=== PATIENT | male | born 1960 | race American Indian/Alaskan Native ===

== ENCOUNTER 2020-10-23 11:38 | Emergency (ER) | payer SELFPAY ==
[2020-10-23 12:46] VITALS: BP 148/76
--- NOTE | 2020-10-23 13:06 | Event Note ---
ED Screening Note Date of service: 10/23/20 Time: 13:05 ED Screening Note: Patient presents to the ER today with complaints of epigastric pain. Onset this morning. Describes it as a cramping pain with associated headache, nausea, vomiting and loose stools. Any associated chest pain, shortness of breath, fever or chills. He denies any hematemesis, hematochezia or melena. He denies any history of abdominal surgeries. He states that he does smoke cigarettes. He denies any significant past medical history. He denies alcohol abuse. This initial assessment/diagnostic orders/clinical plan/treatment(s) is/are subject to change based on patients health status, clinical progression and re-assessment by fellow clinical providers in the ED. Further treatment and workup at subsequent clinical providers discretion. Patient/guardian urged not to elope from the ED as their condition may be serious if not clinically assessed and managed. Initial orders include: Labs/gallbladder us
[2020-10-23 13:55] LABS: Basophils # (Auto) 0.1 K/mm3 (0.0-0.1); Basophils % (Auto) 0.8 % (0.0-1.8); Eosinophils # (Auto) 0.2 K/mm3 (0.0-0.4); Eosinophils % (Auto) 1.9 % (0.0-4.3); Hematocrit 43.4 % (35.5-45.6); Hemoglobin 15.1 gm/dl (11.8-15.2); Lymphocytes # (Auto) 3.6 K/mm3 (1.2-5.4); Lymphocytes % (Auto) 37.8 % (13.4-35.0); Mean Corpuscular HGB Conc 35 % (32-34); Mean Corpuscular Volume 90 fl (84-94); Monocytes # (Auto) 0.6 K/mm3 (0.0-0.8); Monocytes % (Auto) 6.3 % (0.0-7.3); Platelet Count 126 K/mm3 (140-440); Red Blood Count 4.81 M/mm3 (3.65-5.03); Red Cell Distribution Width 14.7 % (13.2-15.2)
[2020-10-23 14:20] LABS: Alanine Aminotransferase 23 units/L (7-56); Albumin 4.4 g/dL (3.9-5); BUN/Creatinine Ratio 12; Blood Urea Nitrogen 14 mg/dL (9-20); Calcium 9.6 mg/dL (8.4-10.2); Hemolysis Index 33
[2020-10-23 14:26] LABS: Bilirubin,Direct < 0.2 mg/dL (0-0.2)
--- NOTE | 2020-10-23 16:23 | Ultrasound Report ---
ULTRASOUND ABDOMEN, LIMITED (RIGHT UPPER QUADRANT) INDICATION: EPIGASTRIC PAIN. COMPARISON: None available. FINDINGS: Pancreas: Visualized portion shows no significant abnormality. Liver: Normal. Gallbladder: Normal. Bile ducts: Normal. Common Bile Duct measures 3 mm. Free fluid: None. Additional Findings: None. IMPRESSION: 1. No sonographic abnormality of the right upper quadrant. Signer Name: Erasmo Sandoval MD Signed: 10/23/2020 4:18 PM Workstation Name: [id number]
--- NOTE | 2020-10-23 17:33 | Emergency Department Report ---
ED General Adult HPI - General Chief complaint: Abdominal Pain Stated complaint: VOMIT X2DAY/HEADACHES/STOMACH Time Seen by Provider: 10/23/20 17:11 Source: patient Mode of arrival: Ambulatory Limitations: No Limitations - History of Present Illness Initial comments: The patient presents to the emergency department with a chief complaint of abdominal pain that started at 2 AM this morning. Patient also states that he had a headache that started at 2 AM as well. He describes the headache is diffuse in nature and states it feels like someone is squeezing his head. Patient states upon awakening he had an episode of vomiting which was clear in nature and one loose stool. Patient states this occurred one of the time as well. He states he was able to go back to sleep at 4 AM and woke up at 6 with the same symptoms as mentioned above. Patient denies fever, chills, or chest pain. Patient states that he is being fully vaccinated since April with the [employer] vaccine. 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 Upon telling the staff his symptoms he was told to go to the emergency department for evaluation. -: Sudden Location: abdomen Radiation: non-radiation Severity scale (0 -10): 3 Quality: aching Consistency: constant Improves with: none Worsens with: none Associated Symptoms: nausea/vomiting. denies: chest pain, cough, diaphoresis, fever/chills, rash, shortness of breath Treatments Prior to Arrival: none - Related Data Previous Rx's Medication Instructions Recorded Last Taken Type Ondansetron [Zofran Odt] 4 mg PO Q4HR PRN #20 tab.rapdis 10/23/20 Unknown Rx Allergies Allergy/AdvReac Type Severity Reaction Status Date / Time No Known Allergies Allergy Verified 10/23/20 16:41 ED Review of Systems ROS: Stated complaint: VOMIT X2DAY/HEADACHES/STOMACH Other details as noted in HPI Comment: All other systems reviewed and negative Constitutional: denies: chills, fever Eyes: denies: eye pain, eye discharge, vision change ENT: denies: ear pain, throat pain Respiratory: denies: cough, shortness of breath, wheezing Cardiovascular: denies: chest pain, palpitations Endocrine: no symptoms reported Gastrointestinal: abdominal pain, nausea, vomiting, diarrhea Genitourinary: denies: urgency, dysuria Musculoskeletal: denies: back pain, joint swelling, arthralgia Skin: denies: rash, lesions Neurological: denies: headache, weakness, paresthesias Psychiatric: denies: anxiety, depression Hematological/Lymphatic: denies: easy bleeding, easy bruising ED Past Medical Hx - Past Medical History Previous Medical History?: No Additional medical history: denies - Surgical History Past Surgical History?: No Additional Surgical History: denies - Social History Smoking Status: Current Some Day Smoker Substance Use Type: Marijuana - Medications Home Medications: Home Medications Medication Instructions Recorded Confirmed Last Taken Type Ondansetron [Zofran Odt] 4 mg PO Q4HR PRN #20 tab.rapdis 10/23/20 Unknown Rx ED Physical Exam - General Limitations: No Limitations General appearance: alert, in no apparent distress - Head Head exam: Present: atraumatic, normocephalic - Eye Eye exam: Present: normal appearance, PERRL, EOMI - ENT ENT exam: Present: mucous membranes moist - Neck Neck exam: Present: normal inspection - Respiratory Respiratory exam: Present: normal lung sounds bilaterally. Absent: respiratory distress - Cardiovascular Cardiovascular Exam: Present: regular rate, normal rhythm. Absent: systolic murmur, diastolic murmur, rubs, gallop - GI/Abdominal GI/Abdominal exam: Present: soft, normal bowel sounds. Absent: distended, tenderness - Rectal Rectal exam: Present: deferred - Extremities Exam Extremities exam: Present: normal inspection - Back Exam Back exam: Present: normal inspection. Absent: CVA tenderness (L) - Neurological Exam Neurological exam: Present: alert, oriented X3, CN II-XII intact. Absent: motor sensory deficit - Psychiatric Psychiatric exam: Present: normal affect, normal mood - Skin Skin exam: Present: warm, dry, intact, normal color. Absent: rash ED Course Vital Signs 10/23/20 10/23/20 12:43 16:54 Temperature 98.0 F Pulse Rate 65 Respiratory 20 Rate Blood Pressure 148/76 [Right] O2 Sat by Pulse 99 99 Oximetry ED Medical Decision Making - Lab Data Result diagrams: 10/23/20 13:26 10/23/20 13:26 Lab Results 10/23/20 10/23/20 10/23/20 Range/Units 13:26 13:26 13:26 WBC 9.5 (4.5-11.0) K/mm3 RBC 4.81 (3.65-5.03) M/mm3 Hgb 15.1 (11.8-15.2) gm/dl Hct 43.4 (35.5-45.6) % MCV 90 (84-94) fl MCH 31 (28-32) pg MCHC 35 H (32-34) % RDW 14.7 (13.2-15.2) % Plt Count 126 L (140-440) K/mm3 Lymph % (Auto) 37.8 H (13.4-35.0) % [place] % (Auto) 6.3 (0.0-7.3) % Eos % (Auto) 1.9 (0.0-4.3) % Baso % (Auto) 0.8 (0.0-1.8) % Lymph # (Auto) 3.6 (1.2-5.4) K/mm3 [place] # (Auto) 0.6 (0.0-0.8) K/mm3 Eos # (Auto) 0.2 (0.0-0.4) K/mm3 Baso # (Auto) 0.1 (0.0-0.1) K/mm3 Seg Neutrophils % 53.2 (40.0-70.0) % Seg Neutrophils # 5.0 (1.8-7.7) K/mm3 Sodium 142 (137-145) mmol/L Potassium 4.1 (3.6-5.0) mmol/L Chloride 106.9 (98-107) mmol/L Carbon Dioxide 24 (22-30) mmol/L Anion Gap 15 mmol/L BUN 14 (9-20) mg/dL Creatinine 1.2 (0.8-1.3) mg/dL Estimated GFR > 60 ml/min BUN/Creatinine Ratio 12 % Glucose 96 (75-100) mg/dL Calcium 9.6 (8.4-10.2) mg/dL Total Bilirubin 0.20 (0.1-1.2) mg/dL Direct Bilirubin < 0.2 (0-0.2) mg/dL Indirect Bilirubin 0.0 mg/dL AST 24 (5-40) units/L ALT 23 (7-56) units/L Alkaline Phosphatase 86 (35-129) units/L Troponin T < 0.010 (0.00-0.029) ng/mL Total Protein 7.2 (6.3-8.2) g/dL Albumin 4.4 (3.9-5) g/dL Albumin/Globulin Ratio 1.6 % Lipase 88 H (13-60) units/L - EKG Data -: EKG Interpreted by Me EKG shows normal: sinus rhythm Rate: normal - Radiology Data Radiology results: report reviewed - Medical Decision Making Discussed results with patient and need to have a COVID-19 test done prior to returning to work. Critical care attestation.: If time is entered above; I have spent that time in minutes in the direct care of this critically ill patient, excluding procedure time. ED Disposition Clinical Impression: Abdominal pain, Nausea & vomiting Disposition: 01 HOME / SELF CARE / HOMELESS Is pt being admited?: No Does the pt Need Aspirin: No Condition: Stable Instructions: Nausea, Adult, Abdominal Pain, Adult, Nausea and Vomiting, Adult Additional Instructions: Return if worse Please obtain COVID-19 testing as discussed Prescriptions: Ondansetron [Zofran Odt] 4 mg PO Q4HR PRN #20 tab.rapdis PRN Reason: Nausea Referrals: HARSHAD VEGA MD [Staff Physician] - 3-5 Days PRIMARY CARE, [Primary Care Provider] - 3-5 Days Forms: Work/School Release Form(ED)
--- NOTE | 2020-10-24 10:09 | Electrocardiograph Report ---
[facility] Test Date: 2020-10-23 Test Time: 13:17:46 Pat Name: REZA GOODMAN Department: Room: Gender: M Application Development Director: MIRANDA : 1960 Requested By: PATT EARLY Order Number: [id number] Reading MD: Christiano Olson Measurements Intervals [place] Rate: 58 P: 35 MN: 158 QRS: -9 QRSD: 91 T: -11 QT: 416 QTc: 410 Interpretive Statements Sinus bradycardia [id number]'[id number] No previous ECG available for comparison Electronically Signed On 10-24-2020 10:09:06 EDT by Christiano Olson
== END 2020-10-23 17:58 | disposition home or self-care (01) ==
LOC: ED 11:38
DX: R10.9 Unspecified abdominal pain (principal); R51.9 Headache, unspecified; R11.10 Vomiting, unspecified; F17.200 Nicotine dependence, unspecified, uncomplicated; F12.90 Cannabis use, unspecified, uncomplicated
CPT/HCPCS: 36415; 76705; 80048; 80076; 83690; 84484; 85025; 93005; 99284

== ENCOUNTER 2021-01-22 09:17 | Emergency (ER) | payer OTHER ==
[2021-01-22 09:26] VITALS: BP 144/70
[2021-01-22] MEDS ORDERED: HYDROcodone/ACETAMINOPHEN 5-325 MG TAB PO ONE (10:25)
--- NOTE | 2021-01-22 10:32 | Emergency Department Report ---
HPI - General Chief Complaint: Urogenital-Male Time Seen by Provider: 01/22/21 10:01 - HPI HPI: 60-year-old -Citizen Of [place] male presents to the emergency department with complaint of left testicular pain. 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 As he was lifting something suddenly "I felt a pop" and had some pain from his left thigh up into the left scrotum/testicle. Initially the pain worsened with ambulation and certain movements of his body, but over the weekend the patient says that the symptoms greatly improved. However, the patient went back to work on Wednesday and Wednesday, and by yesterday afternoon the pain had come back. Currently it is 8 of 10 in intensity. He denies any abdominal pain, back pain, dysuria, hematuria, swelling of the scrotum or testicle, rash or lesions. He denies any past medical history. ED Past Medical Hx - Past Medical History Previous Medical History?: No Additional medical history: denies - Surgical History Past Surgical History?: No Additional Surgical History: denies - Social History Smoking Status: Current Some Day Smoker Substance Use Type: Marijuana - Medications Home Medications: Home Medications Medication Instructions Recorded Confirmed Last Taken Type Ondansetron [Zofran Odt] 4 mg PO Q4HR PRN #20 tab.rapdis 10/23/20 Unknown Rx HYDROcodone/APAP 5-325 [[place] 1 each PO Q6HR PRN #10 tablet 01/22/21 Unknown Rx 5/325] ED Review of Systems ROS: Stated complaint: GROIN PAIN Other details as noted in HPI Comment: All other systems reviewed and negative Constitutional: denies: chills, fever Eyes: denies: eye pain, vision change ENT: denies: ear pain, throat pain Respiratory: denies: cough, shortness of breath Cardiovascular: denies: chest pain, palpitations Gastrointestinal: denies: abdominal pain, vomiting Genitourinary: testicular pain. denies: dysuria, hematuria Musculoskeletal: denies: back pain, arthralgia Skin: denies: rash, lesions Neurological: denies: headache, weakness Physical Exam - Physical Exam Vital Signs: Vital Signs 01/22/21 09:24 Pulse Rate 69 Respiratory 16 Rate Blood Pressure 144/70 [Right] O2 Sat by Pulse 97 Oximetry Physical Exam: GENERAL: The patient is well-developed well-nourished. HENT: Normocephalic. Atraumatic. Patient has moist mucous membranes. EYES: Extraocular motions are intact. NECK: Supple. Trachea is midline. CHEST/LUNGS: Clear to auscultation. There is no respiratory distress noted. HEART/CARDIOVASCULAR: Regular. There is no tachycardia. There is no murmur. ABDOMEN: Abdomen is soft, nontender. Patient has normal bowel sounds. There is no abdominal distention. SKIN: Skin is warm and dry. NEURO: The patient is awake, alert, and oriented. The patient is cooperative. The patient has no focal neurologic deficits. Normal speech. MUSCULOSKELETAL: There is no tenderness or deformity. There is no limitation range of motion. BACK: No CVA tenderness to palpation. : There is reproducible left-sided scrotal and testicular tenderness to palpation. No palpable direct or indirect hernia. ED Course Vital Signs 01/22/21 09:24 Pulse Rate 69 Respiratory 16 Rate Blood Pressure 144/70 [Right] O2 Sat by Pulse 97 Oximetry ED Medical Decision Making - Radiology Data Radiology results: report reviewed SCROTAL ULTRASOUND WITH DOPPLER HISTORY: left sided testicular pain COMPARISON: None. TECHNIQUE: Grayscale, color and spectral Doppler images were obtained of the scrotum. FINDINGS: RIGHT: Right testicle: No significant abnormality. No mass. Right testicular size: 4.8 x 2.9 x 3.1 cm. Right epididymis: No significant abnormality. LEFT: Left testicle: No significant abnormality. No mass. Left testicular size: 5.1 x 2.4 x 3.2 cm. Left epididymis: No significant abnormality. Additional findings: Spectral Doppler waveforms demonstrate arterial flow to both testicles. No hyperemia is appreciated. There is small to medium bilateral hydroceles containing debris. No septation. IMPRESSION: Small to medium slightly complex bilateral hydroceles. Unremarkable testes and epididymides. - Medical Decision Making This patient presents to the emergency department with complaint of left-sided testicular pain. It initially started on Thanksgiving and lasted for a few days before it resolved. However it came back over the past 48 hours. On examination there is reproducible tenderness to palpation to the left testicle but no obvious deformity. No palpable indirect or direct hernia. No abdominal tenderness to palpation. No CVA tenderness to palpation. A testicular/scrotal ultrasound was done that shows bilateral hydrocele. However there is no evidence of torsion or epididymitis. Overall I do not have any definitive evidence for the patient's discomfort but he does not appear to have any life or limb threatening emergency. Patient denies any abdominal pain, dysuria, discharge, hematuria. Patient has been given a prescription for pain medication and outpatient referral for urology. He will return to the emergency department with any worsening of his symptoms or with any acute distress. Critical Care Time: No Critical care attestation.: If time is entered above; I have spent that time in minutes in the direct care of this critically ill patient, excluding procedure time. ED Disposition Clinical Impression: Testicular pain, left, Hydrocele, bilateral Disposition: HOME / SELF CARE / HOMELESS Is pt being admited?: No Condition: Stable Instructions: Hydrocele, Adult, Testicular Self-Exam Additional Instructions: Please follow-up with a primary care physician in the next few days. I am giving you a referral for a local urologist, Dr. Jenkins. You have been prescribed a medication that is sedating and therefore should not be taken prior to driving, working, and responsible for children and in no way should be mixed with alcohol of any quantity. Return to the emergency department with any worsening of your symptoms, new or concerning symptoms not addressed during this current emergency department visit, or with any acute distress. Prescriptions: HYDROcodone/APAP 5-325 [[place] 5/325] 1 each PO Q6HR PRN #10 tablet PRN Reason: Pain Referrals: PRIMARY MD ANDRES [Primary Care Provider] - 3-5 Days STEFANIE JENKINS MD [Staff Physician] - 3-5 Days Forms: Work/School Release Form(ED) Time of Disposition: 12:36
--- NOTE | 2021-01-22 12:20 | Ultrasound Report ---
SCROTAL ULTRASOUND WITH DOPPLER HISTORY: left sided testicular pain COMPARISON: None. TECHNIQUE: Grayscale, color and spectral Doppler images were obtained of the scrotum. FINDINGS: RIGHT: Right testicle: No significant abnormality. No mass. Right testicular size: 4.8 x 2.9 x 3.1 cm. Right epididymis: No significant abnormality. LEFT: Left testicle: No significant abnormality. No mass. Left testicular size: 5.1 x 2.4 x 3.2 cm. Left epididymis: No significant abnormality. Additional findings: Spectral Doppler waveforms demonstrate arterial flow to both testicles. No hyper emia is appreciated. There is small to medium bilateral hydroceles containing debris. No septation. IMPRESSION: Small to medium slightly complex bilateral hydroceles. Unremarkable testes and epididymides. Signer Name: Lopez Altman Jr, MD Signed: 01/22/2021 12:15 PM Workstation Name: [id number]
== END 2021-01-22 12:44 | disposition home or self-care (01) ==
LOC: ED 09:17
DX: N50.812 Left testicular pain (principal); N43.3 Hydrocele, unspecified; F17.200 Nicotine dependence, unspecified, uncomplicated; F12.90 Cannabis use, unspecified, uncomplicated
CPT/HCPCS: 93975; 99283